=== PATIENT | male | born 1990 | race Caucasian/White ===

== ENCOUNTER 2024-06-07 21:46 | Emergency (ER) | payer SELFPAY ==
[~2024-06-07] VITALS: Ht 177.8 cm; Wt 100.0 kg
[2024-06-07 21:55] VITALS: O2SAT 100
[2024-06-07 22:15] VITALS: BP 145/96; PULSE 132; RESP 16; TEMP 98.3
[2024-06-07 23:53] LABS: BASOPHILS % 0.8 % (0.0-2.0); EOSINOPHILS % 1.4 % (0.0-5.0); HEMATOCRIT. 43.1 % (42.0-52.0); HEMOGLOBIN. 14.9 g/dL (14.0-18.0); LYMPHOCYTES % 45.5 % (20.0-50.0); MEAN CORPUSCULAR HEMOGLOBIN 31.4 pg (28.0-32.0); MEAN CORPUSCULAR HGB CONC 34.6 g/dL (31.0-37.0); MEAN CORPUSCULAR VOLUME 90.7 fL (80.0-94.0); MEAN PLATELET VOLUME 7.4 fl (7.4-10.4); MONOCYTES % 6.3 % (2.0-8.0); PLATELET 249 x1000/uL (130-400); RED BLOOD CELL COUNT 4.76 mill/uL (4.7-6.1); RED CELL DISTRIBUTION WIDTH 12.9 % (11.6-14.6); WHITE BLOOD COUNT 5.2 x1000/uL (4.5-11.0)
[2024-06-08] LABS: CHLORIDE 107 mEq/L (98-107); POTASSIUM 3.4 mEq/L (3.5-5.1); SODIUM 144 mEq/L (136-145)
[2024-06-08 00:01] LABS: CARBON DIOXIDE 27 mEq/L (21-32)
[2024-06-08 00:02] LABS: CALCIUM 9.4 mg/dL (8.7-10.4)
[2024-06-08 00:06] LABS: CREATININE 0.8 mg/dL (0.6-1.3); GLUCOSE 124 mg/dL (70-105); UREA NITROGEN BLOOD 5 mg/dL (9-23)
[2024-06-08 00:18] LABS: ETHANOL BLOOD 442 mg/dL (<10)
== END 2024-06-08 02:39 | disposition left against medical advice (07) ==
LOC: ER 21:46
DX: F10.129 Alcohol abuse with intoxication, unspecified (principal); I10 Essential (primary) hypertension; F32.A Depression, unspecified; Y90.9 Presence of alcohol in blood, level not specified
CPT/HCPCS: 36415; 80048; 80320; 85025; 99283; G0480